=== PATIENT | male | born 1945 | race Caucasian/White ===

== ENCOUNTER 2016-12-15 00:54 | Emergency (ER) | payer MEDICARE, OTHER ==
[~2016-12-15] VITALS: Ht 185.4 cm; Wt 65.0 kg
[2016-12-15 01:08] VITALS: BP 180/99; PULSE 97; RESP 20; TEMP 97.9; O2SAT 96
[2016-12-15] MEDS ORDERED: PRED1 PO (01:42)
[2016-12-15] MEDS ORDERED: TEMA15CA PO (01:42)
[2016-12-15] MEDS ORDERED: TAMS0.4C4 PO (01:42)
[2016-12-15 01:51] LABS: AUTOMATED NEUTROPHIL # 2.9 TH/MM3 (1.8-7.7); BASOPHIL # 0.1 TH/MM3 (0-0.2); BASOPHIL % 1.2 % (0.0-2.0); EOSINOPHIL % 0.2 % (0.0-4.0); HEMATOCRIT 43.5 % (39.0-51.0); HEMO FLAGS DIFF FINAL; LYMPH % 21.4 % (9.0-44.0); MEAN CORPUSCULAR HEMOGLOBIN 30.2 PG (27.0-34.0); MEAN CORPUSCULAR HGB CONC 34.3 % (32.0-36.0); MONO % 15.2 % (0.0-8.0); PLATELET COUNT 307 TH/MM3 (150-450); RED BLOOD COUNT 4.94 MIL/MM3 (4.50-5.90); RED CELL DISTRIBUTION WIDTH 16.6 % (11.6-17.2); WHITE BLOOD COUNT 4.8 TH/MM3 (4.0-11.0)
[2016-12-15 01:58] LABS: ALT (GPT) 22 U/L (12-78); ANION GAP 6 MEQ/L (5-15); AST (GOT) 15 U/L (15-37); BICARBONATE 26.7 MEQ/L (21.0-32.0); BLOOD UREA NITROGEN 14 MG/DL (7-18); CHLORIDE 105 MEQ/L (98-107); GLOMERULAR FILTRATION RATE 117 ML/MIN (>89); POTASSIUM 3.9 MEQ/L (3.5-5.1); SODIUM (NA) 138 MEQ/L (136-145)
[2016-12-15 02:08] LABS: ACETAMINOPHEN LESS THAN 2.0 MCG/ML (10.0-30.0); ALKALINE PHOSPHATASE 78 U/L (45-117); TOTAL BILIRUBIN ADULT 0.9 MG/DL (0.2-1.0)
[2016-12-15 02:11] LABS: ALCOHOL LESS THAN 3 MG/DL (0-5)
[2016-12-15] MEDS ORDERED: LORazepam 1 MG TAB PO ONE (02:15)
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
[2016-12-15 04:04] LABS: BLOOD, URINE NEG (NEG); COMMENT (UR) CULT NOT INDICATED; CULTURE IF INDICATED CULT NOT INDICATED; GLUCOSE,URINE NEG (NEG); KETONE, URINE NEG (NEG); MUCUS URINE FEW /lpf (OCC); NITRITE,URINE NEG (NEG); PH, URINE 6.5 (5.0-8.5); URINE COLOR YELLOW (YELLW/STRAW)
--- NOTE | 2016-12-15 13:22 | PD ---
Data Data Last Documented VS Vital Signs Date Time Temp Pulse Resp B/P (MAP) Pulse Ox O2 Delivery O2 Flow Rate FiO2 12/15/16 01:08 97.9 97 20 180/99 (126) 96 Orders Orders Complete Blood Count With Diff (12/15/16 00:58) Comprehensive Metabolic Panel (12/15/16 00:58) Thyroid Stimulating Hormone (12/15/16 00:58) Urinalysis - C+S If Indicated (12/15/16 00:58) Psych Screen (12/15/16 00:58) Drug Screen, Random Urine (12/15/16 00:58) Alcohol (Ethanol) (12/15/16 00:58) Salicylates (Aspirin) (12/15/16 00:58) Tylenol (Acetaminophen) (12/15/16 00:58) Lorazepam (Ativan) (12/15/16 02:15) Ed Discharge Order (12/15/16 13:18) Labs Laboratory Tests Test 12/15/16 00:45 12/15/16 01:30 Urine Color YELLOW Urine Turbidity CLEAR Urine pH 6.5 Urine Specific [place] 1.027 Urine Protein TRACE mg/dL Urine Glucose (UA) NEG mg/dL Urine Ketones NEG mg/dL Urine Occult Blood NEG Urine Nitrite NEG Urine Bilirubin NEG Urine Urobilinogen 8.0 MG/DL Urine Leukocyte Esterase NEG Urine RBC 1 /hpf Urine WBC 1 /hpf Urine Mucus FEW /lpf Microscopic Urinalysis Comment CULT NOT INDICATED Urine Opiates Screen NEG Urine Barbiturates Screen NEG Urine Amphetamines Screen NEG Urine Benzodiazepines Screen NEG Urine Cocaine Screen NEG Urine Cannabinoids Screen NEG White Blood Count 4.8 TH/MM3 Red Blood Count 4.94 MIL/MM3 Hemoglobin 14.9 GM/DL Hematocrit 43.5 % Mean Corpuscular Volume 88.0 FL Mean Corpuscular Hemoglobin 30.2 PG Mean Corpuscular Hemoglobin Concent 34.3 % Red Cell Distribution Width 16.6 % Platelet Count 307 TH/MM3 Mean Platelet Volume 9.2 FL Neutrophils (%) (Auto) 62.0 % Lymphocytes (%) (Auto) 21.4 % Monocytes (%) (Auto) 15.2 % Eosinophils (%) (Auto) 0.2 % Basophils (%) (Auto) 1.2 % Neutrophils # (Auto) 2.9 TH/MM3 Lymphocytes # (Auto) 1.0 TH/MM3 Monocytes # (Auto) 0.7 TH/MM3 Eosinophils # (Auto) 0.0 TH/MM3 Basophils # (Auto) 0.1 TH/MM3 CBC Comment DIFF FINAL Differential Comment Blood Urea Nitrogen 14 MG/DL Creatinine 0.67 MG/DL Random Glucose 118 MG/DL Total Protein 7.4 GM/DL Albumin 3.8 GM/DL Calcium Level 8.8 MG/DL Alkaline Phosphatase 78 U/L Aspartate Amino Transf (AST/SGOT) 15 U/L Alanine Aminotransferase (ALT/SGPT) 22 U/L Total Bilirubin 0.9 MG/DL Sodium Level 138 MEQ/L Potassium Level 3.9 MEQ/L Chloride Level 105 MEQ/L Carbon Dioxide Level 26.7 MEQ/L Anion Gap 6 MEQ/L Estimat Glomerular Filtration Rate 117 ML/MIN Thyroid Stimulating Hormone 3rd Gen 0.564 uIU/ML Salicylates Level LESS THAN 1.7 MG/DL Acetaminophen Level LESS THAN 2.0 MCG/ML Ethyl Alcohol Level LESS THAN 3 MG/DL MDM Medical Record Reviewed: Yes Supervised Visit with JANUSZ: Yes Narrative Course BA inappropriate. BA lifted by psychiatrist. No medical or psychiatric illness to be treated. Daughter is here to take patient home. Diagnosis Primary Impression: Medical clearance for psychiatric admission Referrals: UNKNOWN (PCP) call for appointment Patient Instructions: General Instructions, Medical Clearance for Psychiatric Care (ED) Departure Forms: Tests/Procedures Additional Instruction: PER DR PEÑALOZA PT NEEDS TO FOLLOW UP OUTPATIENT WITH HIS PRIMARY CARE DOCTOR [facility]. MEDICATION ADJUSTMENT NEEDS TO BE DONE BY WHOM EVER PRESCRIBES THE MEDICATION. PT DOES NOT MET CRITERIA FOR ADMISSION AT THIS TIME. PT DENIES SI/HI AND IS NOT A DANGER TO HIMSELF OR OTHERS AT THIS TIME. Disposition: 01 DISCHARGE HOME Condition: Stable Fox Marie MD Dec 15, 2016 13:22
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
== END 2016-12-15 13:34 | disposition home or self-care (01) ==
LOC: NEPD 00:54
DX: F91.8 Other conduct disorders (principal); R63.4 Abnormal weight loss
CPT/HCPCS: 80053; 80307; 81001; 84443; 85025; 99284

== ENCOUNTER 2016-12-19 22:00 | Inpatient (IN) | payer MEDICARE ==
[~2016-12-19] VITALS: Ht 175.3 cm; Wt 63.5 kg
[~2016-12-19 22:00] MED LIST: PRED1 PO; TAMS0.4C4 PO; TEMA15CA PO
[2016-12-19 22:13] VITALS: BP_SYST 112; BP_SYST 149; BP_DIAS 70; BP_DIAS 75; PULSE 140; PULSE 93; RESP 17; TEMP 97.8; TEMP 98.9; O2SAT 100
[2016-12-19 23:34] LABS: AUTOMATED NEUTROPHIL # 4.2 TH/MM3 (1.8-7.7); BASOPHIL # 0.1 TH/MM3 (0-0.2); BASOPHIL % 1.1 % (0.0-2.0); EOSINOPHIL % 0.2 % (0.0-4.0); HEMO FLAGS DIFF FINAL; LYMPH % 15.9 % (9.0-44.0); MEAN CELL VOLUME 87.9 FL (80.0-100.0); MEAN CORPUSCULAR HEMOGLOBIN 29.4 PG (27.0-34.0); MEAN CORPUSCULAR HGB CONC 33.5 % (32.0-36.0); NEUT % 68.8 % (16.0-70.0); PLATELET COUNT 319 TH/MM3 (150-450); RED CELL DISTRIBUTION WIDTH 16.9 % (11.6-17.2); WHITE BLOOD COUNT 6.1 TH/MM3 (4.0-11.0)
[2016-12-19 23:45] LABS: BLOOD, URINE NEG (NEG); COMMENT (UR) CULT NOT INDICATED; CULTURE IF INDICATED CULT NOT INDICATED; GLUCOSE,URINE NEG (NEG); KETONE, URINE TRACE mg/dL (NEG); MUCUS URINE FEW /lpf (OCC); NITRITE,URINE NEG (NEG); SQUAMOUS EPITHELIAL CELL URINE <1 /hpf (0-5); URINE COLOR YELLOW (YELLW/STRAW)
--- NOTE | 2016-12-19 23:53 | PD ---
HPI Chief Complaint: Psychiatric Symptoms Time Seen by Provider: 23:01 Travel History International Travel<30 days: No Contact w/Intl Traveler<30days: No Traveled to known affect area: No History of Present Illness HPI 71-year-old male brought in by PD under Palmer act. Police officers provided witness statements by both the patient's as well as the patient's daughter which patient states that the patient is a very intelligent man, who over recently he has not been acting like himself. He has been more aggressive to his family both physically and verbally and has made suicidal statements. The patient tells me that he was diagnosed with PMR and he believes that this has been a sentence which is making him feel depressed. He tells me today that he is not feeling suicidal, however tells me that he has had very little sleep over the last couple of days and this is making him feel aggravated and depressed. He is denying any physical complaints. Chart review shows that the patient was here on 12/15/16 for similar symptoms and was released by psychiatry the next morning. Palmer Acts explicitly state that the patient is a danger to both himself and others. PFSH Past Medical History Cardiovascular Problems: Yes Medical other: Yes (PMR) Tetanus Vaccination: Unknown Influenza Vaccination: No Past Surgical History Abdominal Surgery: Yes Thoracic Surgery: Yes (L4-5) Other Surgery: Yes (hernia) Social History Alcohol Use: No Tobacco Use: Yes Substance Use: No Allergies-Medications (Allergen,Severity, Reaction): Coded Allergies: meperidine (Verified Adverse Reaction, Unknown, 12/15/16) cold sweats Reported Meds & Prescriptions Reported Meds & Active Scripts Active Reported Tamsulosin (Tamsulosin HCl) 0.4 Mg Cap 0.4 Mg PO HS Temazepam 15 Mg Cap 15 Mg PO HS PRN Prednisone 1 Mg Tab 8 Mg PO DAILY Review of Systems Except as stated in HPI: all other systems reviewed are Neg Physical Exam Narrative GENERAL: Well-developed, well-nourished, awake, alert, slightly agitated, no apparent distress. SKIN: Focused skin assessment warm/dry. HEAD: Atraumatic. Normocephalic. EYES: Pupils equal and round. No scleral icterus. No injection or drainage. ENT: Mucous membranes pink and moist. NECK: Trachea midline. No JVD. CARDIOVASCULAR: Regular rate and rhythm. No murmur appreciated. RESPIRATORY: No accessory muscle use. Clear to auscultation. Breath sounds equal bilaterally. GASTROINTESTINAL: Abdomen soft, non-tender, nondistended. MUSCULOSKELETAL: No obvious deformities. No clubbing. No cyanosis. No edema. NEUROLOGICAL: Awake and alert. No obvious cranial nerve deficits. Motor grossly within normal limits. Normal speech. PSYCHIATRIC: Slightly agitated. Normal insight. Data Data Last Documented VS Vital Signs Date Time Temp Pulse Resp B/P (MAP) Pulse Ox O2 Delivery O2 Flow Rate FiO2 12/19/16 22:13 98.9 93 17 149/75 (99) 100 Orders Orders Complete Blood Count With Diff (12/19/16 23:07) Comprehensive Metabolic Panel (12/19/16 23:07) Urinalysis - C+S If Indicated (12/19/16 23:07) Psych Screen (12/19/16 23:07) Alcohol (Ethanol) (12/19/16 23:07) Labs Laboratory Tests Test 12/19/16 23:20 12/19/16 23:25 Urine Color YELLOW Urine Turbidity HAZY Urine pH 6.0 Urine Specific [place] 1.024 Urine Protein TRACE mg/dL Urine Glucose (UA) NEG mg/dL Urine Ketones TRACE mg/dL Urine Occult Blood NEG Urine Nitrite NEG Urine Bilirubin NEG Urine Urobilinogen 4.0 MG/DL Urine Leukocyte Esterase NEG Urine RBC 1 /hpf Urine WBC 1 /hpf Urine Squamous Epithelial Cells <1 /hpf Urine Mucus FEW /lpf Microscopic Urinalysis Comment CULT NOT INDICATED White Blood Count 6.1 TH/MM3 Red Blood Count 5.00 MIL/MM3 Hemoglobin 14.7 GM/DL Hematocrit 44.0 % Mean Corpuscular Volume 87.9 FL Mean Corpuscular Hemoglobin 29.4 PG Mean Corpuscular Hemoglobin Concent 33.5 % Red Cell Distribution Width 16.9 % Platelet Count 319 TH/MM3 Mean Platelet Volume 9.0 FL Neutrophils (%) (Auto) 68.8 % Lymphocytes (%) (Auto) 15.9 % Monocytes (%) (Auto) 14.0 % Eosinophils (%) (Auto) 0.2 % Basophils (%) (Auto) 1.1 % Neutrophils # (Auto) 4.2 TH/MM3 Lymphocytes # (Auto) 1.0 TH/MM3 Monocytes # (Auto) 0.9 TH/MM3 Eosinophils # (Auto) 0.0 TH/MM3 Basophils # (Auto) 0.1 TH/MM3 CBC Comment DIFF FINAL Differential Comment Blood Urea Nitrogen 16 MG/DL Creatinine 0.69 MG/DL Random Glucose 107 MG/DL Total Protein 7.1 GM/DL Albumin 3.9 GM/DL Calcium Level 9.6 MG/DL Alkaline Phosphatase 71 U/L Aspartate Amino Transf (AST/SGOT) 13 U/L Alanine Aminotransferase (ALT/SGPT) 21 U/L Total Bilirubin 0.9 MG/DL Sodium Level 140 MEQ/L Potassium Level 3.9 MEQ/L Chloride Level 106 MEQ/L Carbon Dioxide Level 28.4 MEQ/L Anion Gap 6 MEQ/L Estimat Glomerular Filtration Rate 113 ML/MIN Ethyl Alcohol Level LESS THAN 3 MG/DL [facility] Medical Decision Making Medical Screen Exam Complete: Yes Emergency Medical Condition: Yes Medical Record Reviewed: Yes Differential Diagnosis Aggressive behavior, suicidal ideation, depression, psychosis Narrative Course Vital signs show heart rate 93, blood pressure 149/75, pulse ox 100% on room air , oral temp of 98.9F. CBC is unremarkable. CMP is unremarkable. Alcohol level is negative. UA shows hazy urine, trace ketones, 4 urobilinogen, few mucus, not suggestive of UTI. The patient is medically cleared for psychiatric evaluation and disposition by them. Diagnosis Primary Impression: Medical clearance for psychiatric admission Jonah Carl MD Dec 19, 2016 23:53
[2016-12-20 00:01] LABS: ANION GAP 6 MEQ/L (5-15); AST (GOT) 13 U/L (15-37); BICARBONATE 28.4 MEQ/L (21.0-32.0); BLOOD UREA NITROGEN 16 MG/DL (7-18); CHLORIDE 106 MEQ/L (98-107); GLOMERULAR FILTRATION RATE 113 ML/MIN (>89); POTASSIUM 3.9 MEQ/L (3.5-5.1); SODIUM (NA) 140 MEQ/L (136-145)
[2016-12-20 00:03] LABS: ALT (GPT) 21 U/L (12-78)
[2016-12-20 00:04] LABS: ALKALINE PHOSPHATASE 71 U/L (45-117); TOTAL BILIRUBIN ADULT 0.9 MG/DL (0.2-1.0)
[2016-12-20 00:05] LABS: ALCOHOL LESS THAN 3 MG/DL (0-5)
[2016-12-20] MEDS ORDERED: TAMSULOSIN HCL 0.4 MG CAP PO ONE (02:15)
[2016-12-20] MEDS ORDERED: LORazepam 0.5 MG TAB PO ONE (02:15)
[2016-12-20] MEDS ORDERED: NICOTINE 21 MG/24 HR PATCH T-DERMAL ONE (08:00)
[2016-12-20 08:08] VITALS: BP 147/77; PULSE 67; RESP 19; TEMP 97.4; O2SAT 97
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
[2016-12-20 12:00] VITALS: BP 158/70; PULSE 69; RESP 16; TEMP 98; O2SAT 97
[2016-12-20 18:13] VITALS: BP 154/74; PULSE 97; RESP 18; TEMP 98.7
[2016-12-20] MEDS ORDERED: MAGNESIUM HYDROXIDE SUSP 30 ML CUP PO PRN (18:30)
[2016-12-20] MEDS: OLANZapine 10 MG TAB PO SCH (21:00)
[2016-12-21 07:01] VITALS: BP 132/64; PULSE 87; RESP 18; TEMP 97.4; O2SAT 94
[2016-12-21] MEDS: OLANZapine 10 MG TAB PO SCH (09:00)
[2016-12-21 10:29] LABS: ANION GAP 6 MEQ/L (5-15); BICARBONATE 32.5 MEQ/L (21.0-32.0); CHLORIDE 102 MEQ/L (98-107); GLOMERULAR FILTRATION RATE 125 ML/MIN (>89); POTASSIUM 3.4 MEQ/L (3.5-5.1); SODIUM (NA) 140 MEQ/L (136-145)
[2016-12-21 10:33] LABS: BLOOD UREA NITROGEN 14 MG/DL (7-18); HDL CHOLESTEROL 42.7 MG/DL (40.0-60.0); LDL CHOLESTEROL 49 MG/DL (0-99)
[2016-12-21 15:10] LABS: HEMOGLOBIN A1a 0.8 %; HEMOGLOBIN A1b 1.4 %; HEMOGLOBIN Ao 87.1 %; HEMOGLOBIN LA1C 1.8 %; HEMOGLOBIN P3 3.4 %
[2016-12-21] MEDS ORDERED: LORazepam 2 MG/ML VIAL IM PRN (18:15)
[2016-12-21] MEDS: TAMSULOSIN HCL 0.4 MG CAP PO SCH (18:15)
[2016-12-21] MEDS: NICOTINE 14 MG/24 HR PATCH T-DERMAL SCH (18:30)
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
[2016-12-21 20:23] VITALS: BP 160/75; PULSE 72; RESP 18; TEMP 97.3; O2SAT 97
[2016-12-21] MEDS: OLANZapine 5 MG TAB PO SCH ×2 (21:00→21:52)
[2016-12-21] MEDS: REMOVE OLD PATCH T-DERMAL SCH (21:00)
[2016-12-21] MEDS: LORazepam 0.5 MG TAB PO SCH ×2 (21:31→21:52)
[2016-12-21] MEDS: predniSONE 1 MG TAB PO SCH (21:50)
[2016-12-22] MEDS: LORazepam 0.5 MG TAB PO SCH ×3 (05:52→21:19)
[2016-12-22 06:46] VITALS: BP 132/76; PULSE 87; RESP 18; TEMP 96.9; O2SAT 96
[2016-12-22] MEDS: TAMSULOSIN HCL 0.4 MG CAP PO SCH (10:01)
[2016-12-22] MEDS: predniSONE 1 MG TAB PO SCH ×3 (10:01→18:38)
[2016-12-22] MEDS: OLANZapine 5 MG TAB PO SCH ×2 (10:02→21:19)
[2016-12-22] MEDS: NICOTINE 14 MG/24 HR PATCH T-DERMAL SCH (10:03)
--- NOTE | 2016-12-22 12:29 | PD.PSY.CON ---
Provisional Diagnosis Admission Date Dec 20, 2016 at 10:57 [place] I. Steroid induced psychosis History of Present Illness Service Psychiatry Consult Requested By Psychiatry Reason for Consult 2nd Opinion Primary Care Physician No Primary Care Physician HPI Pt seen and discussed with staff. Chart reviewed. He remains bizarre and disorganized. He is intrusive and labile. sleep has improved and he slept 6 hours last night. He get increasingly agitated and makes several delusional statements about family members and hospital staff. Per BA, he made suicidal statements. 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 Review of Systems Psychiatric: COMPLAINS OF: Mood changes, Delusions Past Family Social History Coded Allergies: meperidine (Verified Adverse Reaction, Unknown, 12/15/16) cold sweats Reported Medications Tamsulosin (Tamsulosin) 0.4 Mg Cap, 0.4 MG PO HS for Manage Prostate Problems, # 30 CAP 0 Refills 12/15/16 Temazepam (Temazepam) 15 Mg Cap, 15 MG PO HS Y for INSOMNIA, #30 CAP 0 Refills 12/15/16 Prednisone (Prednisone) 1 Mg Tab, 8 MG PO DAILY, TAB 0 Refills 12/15/16 Current Medications Medications (Trade) Dose Ordered Sig/[place] Route Start Time Stop Time Status Last Admin (Tylenol) 650 mg Q4H PRN PO 12/20/16 18:30 (Milk Of Magnesia Liq) 30 ml DAILY PRN PO 12/20/16 18:30 (Mag-Al Plus Susp Liq) 30 ml Q6H PRN PO 12/20/16 18:30 (ZyPREXA) 5 mg Q12HR PO 12/21/16 21:00 12/22/16 10:02 (Deltasone) 2 mg TID PO 12/21/16 19:00 12/22/16 10:01 (Flomax) 0.4 mg DAILY PO 12/21/16 18:15 12/22/16 10:01 (Ativan) 0.5 mg Q8HR PO 12/21/16 22:00 12/22/16 05:52 (Ativan Inj) 1 mg Q6H PRN IM 12/21/16 18:15 (Habitrol 14 Mg Patch.24 Hr) 1 patch DAILY T-DERMAL 12/21/16 18:30 12/22/16 10:03 Miscellaneous Information 1 HS T-DERMAL 10/20/17 21:00 Family Psych History denies Social History 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 Patient's Strengths (min. 2) involved family, education Physical Exam Vital Signs Vital Signs Date Time Temp Pulse Resp B/P (MAP) Pulse Ox O2 Delivery O2 Flow Rate FiO2 12/22/16 06:46 96.9 87 18 132/76 (94) 96 12/20/16 08:08 Room Air I/O 12/22/16 12/22/16 12/23/16 08:00 16:00 00:00 Intake Total 360 ml Balance 360 ml Mental Status Examination Appearance: Appropriate Consciousness: Alert Orientation: x4 Motor Activity: Normal gait, Other (slowed. ) Speech: Rapid Language: Adequate Fund of Knowledge: Adequate Attention and Concentration: Easily Distracted Memory: Unremarkable Mood: Angry, Manic Affect: Labile Thought Process & Associations: Circumstantial Thought Content: Bizarre thinking, Delusional Hallucination Type: None Delusion Type: Bizarre, Paranoid Suicidal Ideation: No Suicidal Plan: No Suicidal Intention: No Homicidal Ideation: No Homicidal Plan: No Homicidal Intention: No Insight: Poor Judgment: Impulsive Assessment & Plan Problem List: (1) Steroid-induced psychosis, with delusions ICD Codes: F19.950 - Other psychoactive substance use, unspecified with psychoactive substance-induced psychotic disorder with delusions Assessment & Plan I agree that pt meets BA criteria due to psychosis and risk of neglect. 2nd opinion paperwork completedEstimated LOS: Blossom Arguelles MD Dec 22, 2016 12:29
--- NOTE | 2016-12-22 15:36 | MB ---
cc: LES GIBSON DATE OF SERVICE 12/22/2016 Extended session. Joint session with the patient and his daughter, Toma, individual session with daughter, Toma, reviewed with the staff. In the joint session the patient denied any somatic complaints. He stated he slept better last night which was a big relief for him. However, he complained of sedation which was not noticeable at this time. He remains hyperverbal, over-elaborate and overinclusive and labile. He also remained very focused on discharge. The need for continued hospital was again explained to him which he did not seem to comprehend. Purpose of the individual session with the daughter was to gather more background information, I explained diagnosis, treatment approach and discussed discharge plans. She denied any previous psychiatric intervention. She indicated that about a year or so ago and he was evaluated by Dr. Harjinder Lizarraga in regards to "muscle weakness" involving upper and lower extremities. According to her he was diagnosed with polymyalgia rheumatica and was put on prednisone 12.[address] Lizarraga saw him only once and from there onwards his primary care physician managed his medications. He was about 6 months or so ago put on temazepam because of insomnia. Over the past 3 or 4 months the family started noticing significant change in his behavior i.e., he would become easily irritated, very angry and at times aggressive. The daughter, Toma, lives in [place] and came to see him because the patient's complained about gradual decline in his overall behavior. She described an incident where he became very angry at her because she was in the way of him mowing the lawn and he literally picked up the weed whacker and was going to throw at him but he fell down. He has not been sleeping at all over the past couple weeks. She mentioned that he has been increasingly guarded and somewhat paranoid. She denied any knowledge of him ever experiencing extreme mood swings up until recently. Recently, the family decided to have a neurological evaluation and as such he was evaluated by Dr. Judith Rosenthal about a week or so ago. Her impression was steroid induced psychosis, dementia. CT scan of the head was done recently and showed old lacunar infarct. She denied any knowledge of him ever experiencing stroke. The daughter denied any knowledge of any significant medical issues except polymyalgia rheumatica. Recently, he underwent some type of surgery on his uvula. Specifically, the daughter denied any history of cardiac issues, thyroid dysfunction, head injury or seizures. According to the daughter the patient's mother had some type of "nervous breakdown." The daughter denied any history of alcohol or drug abuse. I shared my diagnostic impression, treatment approach with the daughter and she was quite supportive. Specifically, I also educated her about the Palmer Act. LABORATORY FINDINGS CBC with differential unremarkable. CMP unremarkable. Blood alcohol level less than 3. Routine urinalysis unremarkable. According to nursing staff he has been compliant with the medications overall except he refused his Ativan this morning because of sedation. MD KARLEE Anguiano/JADEN /3:09 PM /3:18 PM
[2016-12-22 16:00] VITALS: BP 134/58; PULSE 82; RESP 18; TEMP 98.2; O2SAT 95
[2016-12-22 18:28] LABS: FREE T4 1.12 NG/DL (0.76-1.46)
[2016-12-22] MEDS: REMOVE OLD PATCH T-DERMAL SCH (21:00)
[2016-12-23] MEDS: LORazepam 0.5 MG TAB PO SCH ×2 (05:41→14:00)
[2016-12-23 06:00] VITALS: BP 125/61; PULSE 100; RESP 18; TEMP 97.4; O2SAT 96
[2016-12-23] MEDS: OLANZapine 5 MG TAB PO SCH ×2 (09:00→22:10)
[2016-12-23] MEDS: NICOTINE 14 MG/24 HR PATCH T-DERMAL SCH (09:00)
[2016-12-23] MEDS: predniSONE 1 MG TAB PO SCH ×3 (10:17→17:56)
[2016-12-23] MEDS: TAMSULOSIN HCL 0.4 MG CAP PO SCH (10:17)
[2016-12-23] MEDS: ALUMINUM/MAGNESIUM/SIMETH 30 ML CUP PO PRN (14:52)
[2016-12-23 17:40] VITALS: BP 111/55; PULSE 87; RESP 18; TEMP 97.7
[2016-12-23] MEDS: REMOVE OLD PATCH T-DERMAL SCH (21:00)
[2016-12-24] MEDS: ALUMINUM/MAGNESIUM/SIMETH 30 ML CUP PO PRN (05:13)
[2016-12-24 05:58] VITALS: BP 150/67; PULSE 58; RESP 17; TEMP 98; O2SAT 94
[2016-12-24] MEDS: OLANZapine 5 MG TAB PO SCH ×2 (08:47→08:58)
[2016-12-24] MEDS: ACETAMINOPHEN 325 MG TAB PO PRN ×2 (08:47→16:55)
[2016-12-24] MEDS: predniSONE 1 MG TAB PO SCH ×3 (08:47→20:43)
[2016-12-24] MEDS: NICOTINE 14 MG/24 HR PATCH T-DERMAL SCH (08:48)
[2016-12-24] MEDS: TAMSULOSIN HCL 0.4 MG CAP PO SCH (08:48)
[2016-12-24 14:50] LABS: ANA SCREEN NEG (NEG)
[2016-12-24 18:38] VITALS: BP 134/63; PULSE 98; RESP 16; TEMP 98.7; O2SAT 94
[2016-12-24] MEDS: REMOVE OLD PATCH T-DERMAL SCH (21:00)
[2016-12-24] MEDS: OLANZapine ODT 10 MG TAB PO SCH (22:04)
[2016-12-25 06:45] VITALS: BP 149/68; PULSE 79; RESP 18; TEMP 98; O2SAT 97
[2016-12-25] MEDS: TAMSULOSIN HCL 0.4 MG CAP PO SCH (09:23)
[2016-12-25] MEDS: predniSONE 1 MG TAB PO SCH ×2 (09:24→20:47)
[2016-12-25] MEDS: NICOTINE 14 MG/24 HR PATCH T-DERMAL SCH (09:29)
--- NOTE | 2016-12-25 12:12 | PD.TTN ---
Patient Problems 1. Discharge planning 2. Medication compliance 3. Knowledge deficit 4. Lack of coping skills Progress Toward Goals Provider Present: Dr. Peter Ziegler Provider Input: Dr. Ziegler's treatment team met to discuss patient's treatment team plan, discharge plan, and medication. Patient continues to meet criteria. Patient has poor insight into his situation. Continue with treatment. Nurse(s) Input: Patient's nurse Rosalina reports patient is medication compliant, has been sleeping poorly, his mood labile, but at times can be cooperative. Psychiatric Counselors Present: NIK GayleFaviola Psych Therapist Input: Patient seen eating his lunch. Patient has poor insight into his situation.Patient made good eye contact Patient is alert to person, and place Patient presents cooperative, childlike, anxious, exit seeking feels he does not belong here and it's everyone elses fault he is here. Patient is medication compliant. Patient does not present to be internally stimulated or with any delusional content. Patient is denying suicidal and homicidal ideation. Group Spec/RT/OT/[place] Present: Max Flores OT Group Spec/RT/OT/[place] Input: Patient does not participate in groups. Nadeen Wall Dec 25, 2016 12:12
[2016-12-25 18:00] VITALS: BP 124/60; PULSE 79; RESP 18; TEMP 97.9; O2SAT 93
[2016-12-25] MEDS: REMOVE OLD PATCH T-DERMAL SCH (20:49)
[2016-12-25] MEDS: OLANZapine ODT 10 MG TAB PO SCH (22:20)
[2016-12-26] MEDS: ACETAMINOPHEN 325 MG TAB PO PRN (00:26)
[2016-12-26 06:42] VITALS: BP 126/59; PULSE 84; RESP 16; TEMP 97.5; O2SAT 97
[2016-12-26] MEDS: predniSONE 1 MG TAB PO SCH ×2 (09:00→21:31)
[2016-12-26] MEDS: TAMSULOSIN HCL 0.4 MG CAP PO SCH (09:00)
[2016-12-26] MEDS: NICOTINE 14 MG/24 HR PATCH T-DERMAL SCH ×2 (09:00→11:54)
--- NOTE | 2016-12-26 15:23 | PD.TTN ---
Patient Problems 1. Discharge planning 2. Medication compliance 3. Knowledge deficit 4. Lack of coping skills Progress Toward Goals Provider Present: Dr. Peter Ziegler, Dr. Rita Jauregui Provider Input: Dr. Ziegler's treatment team met to discuss patient's treatment team plan, discharge plan, and medication. Patient continues to meet criteria. Patient has poor insight into his situation. Continue with treatment. 12/26/16 Dr. Jauregui's treatment team met to discuss patient's treatment plan, medication and discharge. Patient was confronted with the reasons while patient's family is not wanting patient to return: aggressive, short fuse. Patient was also made aware that he is presenting calmer due to being compliant with medication for the past three days. If patient is not able to return home, patient's daughter stated she would take patient home to [place]. Nurse(s) Input: Patient's nurse Rosalina reports patient is medication compliant, has been sleeping poorly, his mood labile, but at times can be cooperative. 12/26/16 Patient's nurse Clari reports patient feels he can leave now and stay with his granddaughter. He does not feel he needs to stay. He is still argumentative, and angers easily. Medication compliant Psychiatric Counselors Present: Nadeen Wall [facility] Psych Therapist Input: Patient seen eating his lunch. Patient has poor insight into his situation.Patient made good eye contact Patient is alert to person, and place Patient presents cooperative, childlike, anxious, exit seeking feels he does not belong here and it's everyone elses fault he is here. Patient is medication compliant. Patient does not present to be internally 12/26/16 Patient seen today. Patient presents anxious, exit seeking, somatic, combative, grandiose, affect labile. Patient is denying suicidal and homicidal ideation. Patient does not present internally stimulated but does present with grandiose behaviors. Patient made good eye contact. Patient's speech is clear, organized, pressured and rambling. Patient;s reports sleeping better. Patient is alert to person, place, time/day but has poor insight into his situation. stimulated or with any delusional content. Patient is denying suicidal and homicidal ideation. Group Spec/RT/OT/[place] Present: Max Flores OT, DARSHANA [place] Group Spec/RT/OT/[place] Input: Patient does not participate in groups. 12/26/16 Per Scott [place] patient is hyperverbal, attends some groups Nadeen Wall [facility] Dec 26, 2016 15:23
[2016-12-26 17:53] VITALS: BP 142/66; PULSE 88; RESP 17; TEMP 97.7; O2SAT 98
[2016-12-26] MEDS: REMOVE OLD PATCH T-DERMAL SCH (21:00)
[2016-12-26] MEDS: OLANZapine ODT 10 MG TAB PO SCH (21:31)
[2016-12-27 05:47] VITALS: BP 148/65; PULSE 80; RESP 16; TEMP 97.8; O2SAT 96
[2016-12-27] MEDS: TAMSULOSIN HCL 0.4 MG CAP PO SCH (09:14)
[2016-12-27] MEDS: predniSONE 1 MG TAB PO SCH (09:14)
[2016-12-27] MEDS ORDERED: TAMS5CAP PO (09:33)
[2016-12-27] MEDS ORDERED: OLANZ10 PO (09:33)
[2016-12-27] MEDS ORDERED: PRED1 PO (09:33)
[2016-12-27] MEDS: ACETAMINOPHEN 325 MG TAB PO PRN (18:21)
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
== END 2016-12-27 18:35 | disposition home or self-care (01) | DRG 885 ==
LOC: NEDAMB 22:00 → NEDA 12-20 10:57 → H250 12-20 11:15
PROVIDERS: ADMIT Psychiatry & Neurology Psychiatry; ATTEND Psychiatry & Neurology Psychiatry
DX: F23 Brief psychotic disorder (principal); F03.91 Unspecified dementia, unspecified severity, with behavioral disturbance; R45.851 Suicidal ideations; F30.9 Manic episode, unspecified; M35.3 Polymyalgia rheumatica; F43.25 Adjustment disorder with mixed disturbance of emotions and conduct; M54.9 Dorsalgia, unspecified; G89.29 Other chronic pain; T38.0X5A Adverse effect of glucocorticoids and synthetic analogues, initial encounter; N40.0 Benign prostatic hyperplasia without lower urinary tract symptoms; Z72.0 Tobacco use; Z88.5 Allergy status to narcotic agent; Z91.19 Patient's noncompliance with other medical treatment and regimen
CPT/HCPCS: 80048; 80053; 80061; 80307; 81001; 82306; 82607; 82746; 83036; 84439; 84443; 85025; 85652; 86038; 86592; J7512